=== PATIENT | male | born 1940 | race Caucasian/White ===

== ENCOUNTER 2017-03-16 14:09 | Observation (INO) | payer MEDICARE ==
[~2017-03-16] VITALS: Ht 177.8 cm; Wt 83.9 kg
[2017-03-16] MEDS ORDERED: ASPIRIN 325MG EC TAB 325 MG TABLET.DR PO ONE (14:14)
[2017-03-16 14:36] LABS: BASOPHILS % (AUTO) 0.6 % (0.0-5.0); EOSINOPHILS % (AUTO) 1.6 % (0.0-8.0); HEMATOCRIT 36.3 % (42-54); LYMPHOCYTES % (AUTO) 41.4 % (21.0-51.0); MEAN CORPUSCULAR HEMOGLOBIN 32.2 pg (27.0-33.0); MEAN CORPUSCULAR HGB CONC 36.1 g/dL (32.0-36.0); MEAN CORPUSCULAR VOLUME 89.2 fL (79-99); MONOCYTES % (AUTO) 6.9 % (3.0-13.0); NEUTROPHILS % (AUTO) 49.5 % (40.0-77.0); PLATELET COUNT (AUTO) 217 K/uL (130-400); RED BLOOD CELL COUNT(AUTO) 4.06 MIL/uL (4.50-6.20); RED CELL DISTRIBUTION WIDTH 12.9 % (11.0-15.5); WHITE BLOOD COUNT (AUTO) 7.8 K/uL (4.8-10.8)
[2017-03-16 14:54] LABS: INR 1.06 (0.85-1.15); PARTIAL THROMBOPLASTIN TIME 24.9 SEC (26.3-35.5); PROTHROMBIN TIME 11.1 SEC (9.6-11.6)
[2017-03-16 15:07] LABS: ALBUMIN 3.5 g/dL (3.5-5.0); BILIRUBIN,TOTAL 0.4 mg/dL (0.2-1.0); CREATINE KINASE MB 2.3 ng/mL (0.5-3.6); CREATININE 0.8 mg/dL (0.5-1.5); TOTAL PROTEIN, SERUM 6.4 g/dL (6.0-8.3)
[2017-03-16 15:08] LABS: POTASSIUM 2.7 mmol/L (3.5-5.1)
[2017-03-16] MEDS ORDERED: POTASSIUM BICARB/CIT AC 25 MEQ TABLET.EFF ONE ×2 (15:12→16:03)
[2017-03-16] MEDS ORDERED: METOPROLOL TARTRATE 1 MG/ML 5ML VIAL IV ONE (21:29)
[2017-03-16 22:23] VITALS: BP 149/68
[2017-03-16 22:59] LABS: CREATINE KINASE MB 1.3 ng/mL (0.5-3.6); TROPONIN I 0.06 ng/mL (0.00-0.06)
[2017-03-17] MEDS ORDERED: LIDOCAINE HCL-MPF 1% 2ML VIAL IJ PRN (03:45)
[2017-03-17] MEDS ORDERED: ACETAMINOPHEN 325 MG TAB PO PRN ×2 (03:45)
[2017-03-17] MEDS ORDERED: LACTULOSE 20 GM/30 ML UDCUP PO PRN (03:45)
[2017-03-17] MEDS ORDERED: IPRATROPIUM/ALBUTEROL SULFATE 3 ML SOLUTION IH PRN (03:45)
[2017-03-17] MEDS ORDERED: NITROGLYCERIN 0.4 MG SL TAB SL PRN (03:45)
[2017-03-17] MEDS ORDERED: POTASSIUM CHLORIDE 10% ELIXIR 20 MEQ/15 ML UDCUP PO PRN (03:45)
[2017-03-17] MEDS ORDERED: POTASSIUM CHLORIDE 20MEQ/100ML 100 ML IV PRN (03:45)
[2017-03-17] MEDS ORDERED: CLONIDINE HCL 0.1 MG TABLET PO PRN (03:45)
[2017-03-17 04:00] VITALS: BP 118/62
[2017-03-17 05:35] LABS: HEMATOCRIT 36.9 % (42-54); MEAN CORPUSCULAR HEMOGLOBIN 31.6 pg (27.0-33.0); MEAN CORPUSCULAR HGB CONC 35.3 g/dL (32.0-36.0); MEAN CORPUSCULAR VOLUME 89.5 fL (79-99); PLATELET COUNT (AUTO) 195 K/uL (130-400); RED BLOOD CELL COUNT(AUTO) 4.12 MIL/uL (4.50-6.20); RED CELL DISTRIBUTION WIDTH 12.8 % (11.0-15.5); WHITE BLOOD COUNT (AUTO) 6.1 K/uL (4.8-10.8)
[2017-03-17 05:53] LABS: BAND NEUTROPHILS % (MANUAL) 2 % (0-2); EOSINOPHILS % (MANUAL) 1 % (1-6); LYMPHOCYTES % (MANUAL) 31 % (22-44); MAN.DIFF COMMENT-IMPRESSION MANUAL DIFFERENTIAL; MONOCYTES % (MANUAL) 7 % (2-9); PLATELET MORPHOLOGY COMMENT ADEQUATE; SEGMENTED NEUTROPHILS % 59 % (40-70)
[2017-03-17 06:09] LABS: CREATINE KINASE MB 1.1 ng/mL (0.5-3.6); CREATININE 0.8 mg/dL (0.5-1.5); POTASSIUM 3.4 mmol/L (3.5-5.1); TROPONIN I 0.05 ng/mL (0.00-0.06)
[2017-03-17 07:38] VITALS: BP 120/64
[2017-03-17] MEDS: POTASSIUM CHLORIDE 20 MEQ ERTAB PO PRN ×2 (08:27→10:30)
[2017-03-17] MEDS ORDERED: ASPIRIN 325 MG TABLET PO SCH (09:00)
[2017-03-17] MEDS ORDERED: FAMOTIDINE 20MG TAB 20 MG TAB PO SCH (09:00)
[2017-03-17] MEDS ORDERED: METOPROLOL TARTRATE 1 MG/ML 5ML VIAL IV SCH (09:00)
[2017-03-17] MEDS ORDERED: PANT40TA25 PO (09:28)
[2017-03-17] MEDS ORDERED: ASPI81TA40 PO (09:28)
[2017-03-17] MEDS ORDERED: XALA2.5OS OU (09:28)
[2017-03-17] MEDS ORDERED: METO-408 PO (09:28)
[2017-03-17] MEDS ORDERED: FINA5TAB41 PO (09:28)
[2017-03-17] MEDS ORDERED: LOSA1TAB54 PO (09:28)
[2017-03-17] MEDS ORDERED: ATOR40TA69 PO (09:28)
[2017-03-17] MEDS ORDERED: CLOP75TA32 PO (09:28)
[2017-03-17] MEDS ORDERED: AMOX500C2 PO (09:28)
[2017-03-17] MEDS ORDERED: METR500T4 PO (09:28)
[2017-03-17] MEDS ORDERED: AMLO2.5T PO (09:28)
[2017-03-17] MEDS ORDERED: AMOXICILLIN 500 MG CAPSULE PO SCH (14:00)
[2017-03-17] MEDS ORDERED: AMLODIPINE BESYLATE 2.5 MG TAB PO SCH (17:00)
[2017-03-17] MEDS ORDERED: NON-FORMULARY MEDICATION 1 EACH (Metoprolol Succinate 25 MG) PO SCH (17:00)
[2017-03-17] MEDS ORDERED: METRONIDAZOLE 500 MG TABLET PO SCH (21:00)
[2017-03-17] MEDS ORDERED: PANTOPRAZOLE SODIUM 40 MG TABLET.DR PO SCH (21:00)
[2017-03-17] MEDS ORDERED: LATANOPROST 2.5 ML DROPS OU SCH (21:00)
[2017-03-18] MEDS ORDERED: FINASTERIDE 5 MG TABLET PO SCH (09:00)
[2017-03-18] MEDS ORDERED: NON-FORMULARY MEDICATION 1 EACH (Losartan/Hydrochlorothiazide (Losartan-Hctz 100-25 mg Tab PO SCH (09:00)
[2017-03-18] MEDS ORDERED: ASPIRIN 81 MG EC TAB PO SCH (09:00)
[2017-03-18] MEDS ORDERED: CLOPIDOGREL BISULFATE 75 MG TAB PO SCH (09:00)
[2017-03-18] MEDS ORDERED: ATORVASTATIN CALCIUM 40 MG TABLET PO SCH (09:00)
== END 2017-03-17 10:57 | disposition home or self-care (01) ==
LOC: EDH 14:09 → EDHIP 19:40 → 2AH 22:03
PROVIDERS: ADMIT Family Medicine; ATTEND Family Medicine
DX: I25.119 Atherosclerotic heart disease of native coronary artery with unspecified angina pectoris (principal); E87.6 Hypokalemia; E78.5 Hyperlipidemia, unspecified; I10 Essential (primary) hypertension; N40.0 Benign prostatic hyperplasia without lower urinary tract symptoms; K21.9 Gastro-esophageal reflux disease without esophagitis; Z95.1 Presence of aortocoronary bypass graft; Z95.5 Presence of coronary angioplasty implant and graft; Z88.1 Allergy status to other antibiotic agents; Z79.899 Other long term (current) drug therapy
CPT/HCPCS: 36415 ×2; 71045; 80048; 80053; 80061; 82550 ×3; 82553 ×3; 83874 ×3; 83880; 84132; 84484 ×4; 85025 ×2; 85610; 85730; 93005 ×4; 94664; 99285; G0378 ×15; J3490

== ENCOUNTER → 2017-11-27 | Outpatient (CLI) | payer MEDICARE ==
[~2017-11-27] MED LIST: AMLO2.5T3 PO; AMOX500C2 PO; ASPI81TA40 PO; ATOR40TA69 PO; CLOP75TA32 PO; FINA5TAB41 PO; LOSA1TAB54 PO; METO-408 PO; METR500T4 PO; PANT40TA25 PO; XALA2.5OS OU
== END | disposition home or self-care (01) ==
LOC: SHCH 12:50
PROVIDERS: ATTEND Internal Medicine Cardiovascular Disease
DX: I65.23 Occlusion and stenosis of bilateral carotid arteries (principal); R09.89 Other specified symptoms and signs involving the circulatory and respiratory systems
CPT/HCPCS: 93880

== ENCOUNTER 2018-03-12 07:40 | Day surgery (SDC) | payer MEDICARE ==
[2018-03-12] VITALS (7 sets, daily range): BP systolic 107–120; BP diastolic 49–66
[~2018-03-12] VITALS: Ht 177.8 cm; Wt 82.0 kg
[~2018-03-12 07:40] MED LIST changes: -AMLO2.5T3 PO; +AMLO2.5T4 PO; -AMOX500C2 PO; -METO-408 PO; -METR500T4 PO; -PANT40TA25 PO; +SODIUM CHLORIDE 0.9% 1000ML 1,000 ML IV ONE
--- NOTE | 2018-03-12 09:15 | NUR ---
NURSING REGARDING PT DRINKING 8OZ H2O THIS AM AT 0700 ANESTHESIA NOTIFIED (BETH) Addendum: 03/12/18 at 0917 by BETSEY SHAH RN Amended: Links added.
[2018-04-17] MEDS ORDERED: FLUT16H NS (13:32)
[2018-04-17] MEDS ORDERED: PANT40TA25 PO (13:32)
[2018-04-17] MEDS ORDERED: SUCR1TAB2 PO (13:32)
== END 2018-03-12 11:20 | disposition home or self-care (01) ==
LOC: ENDO 07:40 → DAH 07:40 → ENDO 11:20
PROVIDERS: ATTEND Internal Medicine
DX: K29.50 Unspecified chronic gastritis without bleeding (principal); K21.0 Gastro-esophageal reflux disease with esophagitis; K31.89 Other diseases of stomach and duodenum; E78.5 Hyperlipidemia, unspecified; I10 Essential (primary) hypertension; M19.90 Unspecified osteoarthritis, unspecified site; I25.10 Atherosclerotic heart disease of native coronary artery without angina pectoris; B96.81 Helicobacter pylori [H. pylori] as the cause of diseases classified elsewhere; K44.9 Diaphragmatic hernia without obstruction or gangrene; Z79.899 Other long term (current) drug therapy; Z98.890 Other specified postprocedural states; Z80.0 Family history of malignant neoplasm of digestive organs; Z86.010 Personal history of colon polyps
CPT/HCPCS: 43239; 88305; 88342; 93005; A4606; J7030

== ENCOUNTER 2018-04-18 07:09 | Day surgery (SDC) | payer MEDICARE ==
[2018-04-16 16:06] VITALS: BP 154/62
--- NOTE | 2018-04-16 16:06 | NUR ---
EKG DR CORRIGAN REVIEWED EKG FROM 04/16/18, OK TO PROCEED WITH SURGERY PLANNED
[2018-04-16 16:11] LABS: BASOPHILS % (AUTO) 0.3 % (0.0-5.0); EOSINOPHILS % (AUTO) 2.4 % (0.0-8.0); MEAN CORPUSCULAR HEMOGLOBIN 31.6 pg (27.0-33.0); MEAN CORPUSCULAR HGB CONC 34.6 g/dL (32.0-36.0); MEAN CORPUSCULAR VOLUME 91.3 fL (79-99); MONOCYTES % (AUTO) 7.5 % (3.0-13.0); NEUTROPHILS % (AUTO) 54.8 % (40.0-77.0); NUCLEATED RED BLOOD CELLS 0.1 % (0.0-0.19); PLATELET COUNT (AUTO) 185 K/uL (130-400); RED BLOOD CELL COUNT(AUTO) 4.71 MIL/uL (4.50-6.20); RED CELL DISTRIBUTION WIDTH 12.9 % (11.0-15.5); WHITE BLOOD COUNT (AUTO) 5.9 K/uL (4.8-10.8)
[2018-04-16 16:17] LABS: CREATININE 0.7 mg/dL (0.5-1.5); POTASSIUM 3.7 mmol/L (3.5-5.1)
[2018-04-18] VITALS (12 sets, daily range): BP systolic 102–128; BP diastolic 55–67
[~2018-04-18] VITALS: Ht 177.8 cm; Wt 82.6 kg
[2018-04-18] MEDS: CEFTRIAXONE SODIUM 1 GM IVP SCH ×2 (06:00→08:35)
[~2018-04-18 07:09] MED LIST changes: +FLUT16H NS; +PANT40TA25 PO; -SODIUM CHLORIDE 0.9% 1000ML 1,000 ML IV ONE; +SUCR1TAB2 PO
[2018-04-18] MEDS ORDERED: LIDOCAINE HCL 1% 20 ML VIAL ONE (07:37)
[2018-04-18] MEDS ORDERED: BUPIVACAINE/PF 0.25% 30ML VIAL IJ ONE (07:37)
[2018-04-18] MEDS ORDERED: BACITRACIN 28.4 GM OINT TP ONE (07:39)
[2018-04-18] MEDS ORDERED: LACTATED RINGERS 1000ML 1,000 ML IV ONE (08:03)
[2018-04-18] MEDS ORDERED: MIDAZOLAM HCL 1 MG/ML 2ML VIAL ONE (08:18)
[2018-04-18] MEDS ORDERED: PROPOFOL 10 MG/ML 20ML VIAL IV ONE (08:18)
[2018-04-18] MEDS ORDERED: LIDOCAINE PF 2% 5ML ABBOJECT ONE (08:18)
[2018-04-18] MEDS ORDERED: FENTANYL CITRATE PF 50 MCG/1 ML 2ML VIAL ONE ×2 (08:19→08:48)
[2018-04-18] MEDS ORDERED: PHENYLEPHRINE HCL 10 MG/ML 1ML VIAL IV ONE (08:55)
[2018-04-18] MEDS ORDERED: EPHEDRINE SULFATE 50 MG/ML AMPULE ONE (09:04)
== END 2018-04-18 10:54 | disposition home or self-care (01) ==
LOC: DAH 07:09
PROVIDERS: ATTEND Urology
DX: N47.1 Phimosis (principal); D18.09 Hemangioma of other sites; I25.10 Atherosclerotic heart disease of native coronary artery without angina pectoris; I10 Essential (primary) hypertension; Z95.1 Presence of aortocoronary bypass graft; Z95.5 Presence of coronary angioplasty implant and graft; Z79.899 Other long term (current) drug therapy; Z88.8 Allergy status to other drugs, medicaments and biological substances; K21.9 Gastro-esophageal reflux disease without esophagitis
CPT/HCPCS: 17107; 36415; 54161; 80048; 85025; 88304; 93005; A4218; A4351; A4510; A4600; A4930; J0696; J2001; J2250; J2370; J2704; J3010 ×2; J3490 ×2; J7120

== ENCOUNTER → 2018-08-05 | Outpatient (CLI) | payer MEDICARE ==
[~2018-08-05] VITALS: Ht 177.8 cm; Wt 79.4 kg
[~2018-08-05] MED LIST changes: +AEC81 PO; -ASPI81TA40 PO; +ATOR10 PO; +BRIM155OS OD; +FLUT16H NASAL; +LATA7.5D OP; +METO25TA3 PO; +REGADENOSON 0.4 MG/5 ML PF SYG IVP SCH
== END | disposition home or self-care (01) ==
LOC: SHCH 08:55
PROVIDERS: ATTEND Internal Medicine Cardiovascular Disease
DX: I25.89 Other forms of chronic ischemic heart disease (principal); R07.9 Chest pain, unspecified; I20.9 Angina pectoris, unspecified
CPT/HCPCS: 78452; 93017; 96374; A9500 ×2; J2785

== ENCOUNTER 2018-08-12 03:49 | Observation (INO) | payer MEDICARE ==
[~2018-08-12] VITALS: Ht 177.8 cm; Wt 78.1 kg
[~2018-08-12 03:49] MED LIST changes: -AEC81 PO; -ATOR10 PO; -BRIM155OS OD; -FLUT16H NASAL; -LATA7.5D OP; -METO25TA3 PO; -REGADENOSON 0.4 MG/5 ML PF SYG IVP SCH
[2018-08-12] MEDS ORDERED: ASPIRIN 325 MG TABLET ONE ×2 (04:11→09:19)
[2018-08-12] MEDS ORDERED: NITROGLYCERIN 1GM/1 INCH PACKET TD ONE (04:11)
[2018-08-12 04:25] LABS: BASOPHILS % (AUTO) 0.6 % (0.0-5.0); EOSINOPHILS % (AUTO) 2.3 % (0.0-8.0); HEMATOCRIT 39.4 % (42-54); LYMPHOCYTES % (AUTO) 27.9 % (21.0-51.0); MEAN CORPUSCULAR HEMOGLOBIN 32.3 pg (27.0-33.0); MEAN CORPUSCULAR HGB CONC 35.6 g/dL (32.0-36.0); MEAN CORPUSCULAR VOLUME 90.8 fL (79-99); NEUTROPHILS % (AUTO) 61.2 % (40.0-77.0); NUCLEATED RED BLOOD CELLS 0.2 % (0.0-0.19); PLATELET COUNT (AUTO) 209 K/uL (130-400); RED BLOOD CELL COUNT(AUTO) 4.34 MIL/uL (4.50-6.20); RED CELL DISTRIBUTION WIDTH 12.3 % (11.0-15.5); WHITE BLOOD COUNT (AUTO) 8.4 K/uL (4.8-10.8)
[2018-08-12 04:29] LABS: INR 1.02 (0.85-1.15); PARTIAL THROMBOPLASTIN TIME 27.3 SEC (26.3-35.5); PROTHROMBIN TIME 10.7 SEC (9.6-11.6)
[2018-08-12 04:33] LABS: ALBUMIN 3.4 g/dL (3.5-5.0); BILIRUBIN,TOTAL 0.5 mg/dL (0.2-1.0); CREATININE 0.8 mg/dL (0.5-1.5); TOTAL PROTEIN, SERUM 6.7 g/dL (6.0-8.3)
[2018-08-12 04:35] LABS: POTASSIUM 2.9 mmol/L (3.5-5.1)
[2018-08-12 04:59] LABS: B-TYPE NATRIURETIC PEPTIDE 136 pg/mL (0-100)
[2018-08-12] MEDS ORDERED: MAGNESIUM 2GM PREMIX 50ML 50 ML IV PRN (05:00)
[2018-08-12] MEDS ORDERED: POTASSIUM CHLORIDE 20 MEQ ERTAB PO PRN (05:00)
[2018-08-12] MEDS ORDERED: POTASSIUM CHLORIDE 10% ELIXIR 20 MEQ/15 ML UDCUP PO PRN (05:00)
[2018-08-12] MEDS ORDERED: POTASSIUM CHLORIDE 20MEQ/100ML 100 ML IV PRN (05:00)
[2018-08-12] MEDS ORDERED: LIDOCAINE HCL-MPF 1% 2ML VIAL IVP PRN (05:00)
[2018-08-12 05:11] LABS: APPEARANCE,URINE Clear (CLEAR); BILIRUBIN,URINE Negative (NEGATIVE); COLOR,URINE Yellow (YELLOW); GLUCOSE, URINE (UA) Negative (NEGATIVE); KETONES,URINE Negative (NEGATIVE); LEUKOCYTE ESTERASE ,URINE Negative (NEGATIVE); NITRATE,URINE Negative (NEGATIVE); OCCULT BLOOD,URINE Trace (NEGATIVE); PROTEIN,URINE Negative (NEGATIVE); UROBILINOGEN,URINE 0.2 mg/dL (0.2-1.0)
[2018-08-12] MEDS ORDERED: NITROGLYCERIN 0.4 MG SL TAB SL PRN (05:15)
[2018-08-12] MEDS ORDERED: ACETAMINOPHEN 325 MG TAB PO PRN ×2 (05:15)
[2018-08-12] MEDS ORDERED: ONDANSETRON HCL 4 MG/2 ML VIAL IV PRN (05:15)
[2018-08-12 05:17] LABS: AMPHET/METH SCREEN,URINE NEGATIVE (NEGATIVE); BARBITURATE SCREEN, URINE NEGATIVE (NEGATIVE); BENZODIAZEPINES SCREEN,URINE NEGATIVE (NEGATIVE); CANNABINOID SCREEN,URINE NEGATIVE (NEGATIVE); COCAINE SCREEN,URINE NEGATIVE (NEGATIVE); OPIATE SCREEN,URINE NEGATIVE (NEGATIVE); PHENCYCLIDINE SCREEN,URINE NEGATIVE (NEGATIVE)
[2018-08-12 05:32] LABS: BACTERIA,URINE Rare /HPF (None Seen); RBC,URINE 0-1 /HPF (0-1); SQUAMOUS EPITHELIAL CELL,UR None Seen /HPF (0-2); WBC,URINE None Seen /HPF (0-1)
[2018-08-12] MEDS ORDERED: POTASSIUM CHLORIDE 20 MEQ ERTAB PO ONE ×4 (06:10→11:43)
[2018-08-12] MEDS ORDERED: MAGNESIUM 2GM PREMIX 50ML 50 ML IV ONE (06:11)
[2018-08-12] MEDS ORDERED: POTASSIUM CHLORIDE 20MEQ/100ML 100 ML IV ONE (08:01)
[2018-08-12] MEDS ORDERED: ENOXAPARIN SODIUM 30 MG/0.3 ML SQ SCH (09:00)
[2018-08-12] MEDS ORDERED: METOPROLOL TARTRATE 25 MG TAB PO SCH (09:00)
[2018-08-12] MEDS ORDERED: FAMOTIDINE 20MG TAB 20 MG TAB PO SCH (09:00)
[2018-08-12] MEDS ORDERED: ENOXAPARIN SODIUM 30 MG/0.3 ML SQ ONE (09:19)
[2018-08-12] MEDS ORDERED: FAMOTIDINE 20MG TAB 20 MG TAB ONE (09:19)
[2018-08-12] MEDS ORDERED: METOPROLOL TARTRATE 25 MG TAB ONE (09:19)
[2018-08-12 12:15] VITALS: BP 146/74
[2018-08-12 12:58] LABS: POTASSIUM 3.8 mmol/L (3.5-5.1); TROPONIN I 0.04 ng/mL (0.00-0.06)
[2018-08-12] MEDS ORDERED: LATA7.5D OP (15:18)
[2018-08-12] MEDS ORDERED: FLUT16H NASAL (15:18)
[2018-08-12] MEDS ORDERED: ATOR10 PO (15:18)
[2018-08-12] MEDS ORDERED: CLOP75TA32 PO (15:18)
[2018-08-12] MEDS ORDERED: LOSA1TAB54 PO (15:18)
[2018-08-12] MEDS ORDERED: BRIM155OS OD (15:18)
[2018-08-12] MEDS ORDERED: FINA5TAB41 PO (15:18)
[2018-08-12] MEDS ORDERED: AEC81 PO (15:18)
[2018-08-12] MEDS ORDERED: AMLO2.5T4 PO (15:18)
[2018-08-12 16:00] VITALS: BP 151/70
--- NOTE | 2018-08-12 16:10 | NUR ---
INITIAL MET W PATIENT, AAOX3, NO DISTTRESS, HERE FOR CHEST PAIN WORKUP, STATES INDP OF ADLS, USES NO MOBILITY AIDS, DRIVES, LIVES W SPOUSE [facility] WHO WILL PROVIDE TRANSPORT HOME. STATES HAS BEEN GETTING CHEST PAIN AND TIREDNESS WHEN CUTTING GREASS. CM WILL FOLLOW TO RECOMMENDATIONS. DCP HOME .
[2018-08-12 19:05] VITALS: BP 122/66
[2018-08-12 20:24] LABS: MAGNESIUM 1.9 mg/dL (1.80-2.40); TROPONIN I 0.05 ng/mL (0.00-0.06)
[2018-08-13] MEDS ORDERED: METO25TA3 PO (00:15)
[2018-08-13 00:20] VITALS: BP 124/70
[2018-08-13] MEDS ORDERED: SIMETHICONE 80 MG TAB.CHEW ONE (03:09)
[2018-08-13] MEDS ORDERED: SIMETHICONE 80 MG TAB.CHEW PO ONE (03:15)
[2018-08-13 04:00] VITALS: BP 144/79
[2018-08-13 05:45] LABS: BASOPHILS % (AUTO) 0.4 % (0.0-5.0); HEMATOCRIT 38.4 % (42-54); LYMPHOCYTES % (AUTO) 27.9 % (21.0-51.0); MEAN CORPUSCULAR HEMOGLOBIN 31.8 pg (27.0-33.0); MEAN CORPUSCULAR HGB CONC 35.1 g/dL (32.0-36.0); MEAN CORPUSCULAR VOLUME 90.5 fL (79-99); MONOCYTES % (AUTO) 7.6 % (3.0-13.0); NEUTROPHILS % (AUTO) 62.1 % (40.0-77.0); PLATELET COUNT (AUTO) 209 K/uL (130-400); RED BLOOD CELL COUNT(AUTO) 4.25 MIL/uL (4.50-6.20); RED CELL DISTRIBUTION WIDTH 12.6 % (11.0-15.5); WHITE BLOOD COUNT (AUTO) 7.2 K/uL (4.8-10.8)
[2018-08-13 06:04] LABS: ALBUMIN 3.2 g/dL (3.5-5.0); BILIRUBIN,TOTAL 0.5 mg/dL (0.2-1.0); CREATININE 0.7 mg/dL (0.5-1.5); MAGNESIUM 2.4 mg/dL (1.80-2.40); POTASSIUM 3.8 mmol/L (3.5-5.1); TOTAL PROTEIN, SERUM 6.5 g/dL (6.0-8.3)
--- NOTE | 2018-08-13 08:00 | NUR ---
MEDICATIONS Patient stated he would like to take his own home medications when he gets home. No medications were given before discharge.
--- NOTE | 2018-08-13 08:41 | NUR ---
DISCHARGE Instructions given. 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 Follow up appointments for Dr. Jm Oden for tomorrow and pt already has an appointment with Dr. Jm Webber that was made before this admission in 6 weeks and patient plans to follow up. Prescription given for metoprolol succinate and losartan as ordered.
[2018-08-13] MEDS ORDERED: ASPIRIN 325 MG TABLET PO SCH (09:00)
== END 2018-08-13 08:35 | disposition home or self-care (01) ==
LOC: EDH 03:49 → EDHIP 04:57 → 3CH 12:03
PROVIDERS: ADMIT Internal Medicine; ATTEND Internal Medicine
DX: R07.89 Other chest pain (principal); E78.5 Hyperlipidemia, unspecified; E83.42 Hypomagnesemia; I10 Essential (primary) hypertension; I25.10 Atherosclerotic heart disease of native coronary artery without angina pectoris; K21.9 Gastro-esophageal reflux disease without esophagitis; N40.0 Benign prostatic hyperplasia without lower urinary tract symptoms; E87.6 Hypokalemia; F10.10 Alcohol abuse, uncomplicated; Z79.02 Long term (current) use of antithrombotics/antiplatelets; Z79.82 Long term (current) use of aspirin; Z79.899 Other long term (current) drug therapy; Z80.0 Family history of malignant neoplasm of digestive organs; Z95.1 Presence of aortocoronary bypass graft; Z95.5 Presence of coronary angioplasty implant and graft
CPT/HCPCS: 36415 ×2; 71045; 80053 ×2; 80061; 80305; 81001; 82550 ×3; 83690; 83735 ×3; 83874 ×2; 83880; 84132 ×2; 84484 ×3; 85025 ×2; 85610; 85730; 87486; 87581; 87633; 87798; 93005 ×3; 96365; 99284; G0378 ×27; J1650; J3475 ×2; J3480

== ENCOUNTER → 2018-12-02 | Outpatient (CLI) | payer MEDICARE ==
[~2018-12-02] MED LIST changes: -LOSA1TAB54 PO; +METO25TA3 PO
== END | disposition home or self-care (01) ==
LOC: SHCH 13:23
PROVIDERS: ATTEND Internal Medicine Cardiovascular Disease
DX: I65.23 Occlusion and stenosis of bilateral carotid arteries (principal)
CPT/HCPCS: 93880

== ENCOUNTER → 2019-03-05 | Outpatient (CLI) | payer MEDICARE | END | disposition home or self-care (01) | LOC: RAH 12:29 | PROVIDERS: ATTEND Internal Medicine Gastroenterology | DX: R60.9 Edema, unspecified (principal) | CPT/HCPCS: 93970 ==

== ENCOUNTER → 2019-03-19 | Outpatient (CLI) | payer MEDICARE | END | disposition home or self-care (01) | LOC: SHCH 09:13 | PROVIDERS: ATTEND Internal Medicine Cardiovascular Disease | DX: I35.1 Nonrheumatic aortic (valve) insufficiency (principal) | CPT/HCPCS: 93306; 93356 ==

== ENCOUNTER → 2019-05-13 | Outpatient (CLI) | payer MEDICARE | END | disposition home or self-care (01) | LOC: SHCH 13:46 | PROVIDERS: ATTEND Internal Medicine Cardiovascular Disease | DX: I87.2 Venous insufficiency (chronic) (peripheral) (principal) | CPT/HCPCS: 93970 ==

== ENCOUNTER → 2019-11-06 | Outpatient (CLI) | payer MEDICARE ==
[~2019-11-06] MED LIST changes: -PANT40TA25 PO; +PANT40TA54 PO
== END | disposition home or self-care (01) ==
LOC: SHCH 09:43
PROVIDERS: ATTEND Internal Medicine Cardiovascular Disease
DX: R06.09 Other forms of dyspnea (principal)
CPT/HCPCS: 93306; 93356

== ENCOUNTER → 2019-12-08 | Outpatient (CLI) | payer MEDICARE ==
[~2019-12-08] MED LIST changes: +REGADENOSON 0.4 MG/5 ML PF SYG IVP SCH
== END | disposition home or self-care (01) ==
LOC: SHCH 07:46
PROVIDERS: ATTEND Internal Medicine Cardiovascular Disease
DX: R07.9 Chest pain, unspecified (principal); R06.09 Other forms of dyspnea
CPT/HCPCS: 78452; 93017; 96374; A9500 ×2; J2785

== ENCOUNTER 2019-12-21 08:39 | Observation (INO) | payer MEDICARE ==
[2019-12-18 12:47] LABS: BASOPHILS % (AUTO) 0.3 % (0.0-5.0); EOSINOPHILS % (AUTO) 2.7 % (0.0-8.0); HEMATOCRIT 39.7 % (42-54); LYMPHOCYTES % (AUTO) 29.9 % (21.0-51.0); MEAN CORPUSCULAR HEMOGLOBIN 30.9 pg (27.0-33.0); MEAN CORPUSCULAR HGB CONC 33.2 g/dL (32.0-36.0); MONOCYTES % (AUTO) 7.5 % (3.0-13.0); NEUTROPHILS % (AUTO) 59.3 % (40.0-77.0); PLATELET COUNT (AUTO) 144 K/uL (130-400); RED BLOOD CELL COUNT(AUTO) 4.27 MIL/uL (4.50-6.20); RED CELL DISTRIBUTION WIDTH 12.9 % (11.0-15.5); WHITE BLOOD COUNT (AUTO) 6.2 K/uL (4.8-10.8)
[2019-12-18 13:04] LABS: CREATININE 0.8 mg/dL (0.5-1.5); POTASSIUM 4.1 mmol/L (3.5-5.1)
[2019-12-18 13:06] LABS: PARTIAL THROMBOPLASTIN TIME 26.1 SEC (26.3-35.5)
[2019-12-18 13:16] LABS: INR 1.12 (0.85-1.15)
[2019-12-18 13:37] LABS: APPEARANCE,URINE Clear (CLEAR); BILIRUBIN,URINE Negative (NEGATIVE); COLOR,URINE Yellow (YELLOW); GLUCOSE, URINE (UA) Negative (NEGATIVE); KETONES,URINE Negative (NEGATIVE); LEUKOCYTE ESTERASE ,URINE Negative (NEGATIVE); NITRATE,URINE Negative (NEGATIVE); OCCULT BLOOD,URINE Trace (NEGATIVE); PROTEIN,URINE Negative (NEGATIVE); UROBILINOGEN,URINE 0.2 mg/dL (0.2-1.0)
[2019-12-18 14:10] LABS: BACTERIA,URINE Rare /HPF (None Seen); RBC,URINE 0-1 /HPF (0-1); SQUAMOUS EPITHELIAL CELL,UR None Seen /HPF (0-2); WBC,URINE None Seen /HPF (0-1)
[2019-12-21] VITALS (11 sets, daily range): BP systolic 96–139; BP diastolic 67–72
[~2019-12-21] VITALS: Ht 177.8 cm; Wt 79.4 kg
[~2019-12-21 08:39] MED LIST changes: +ASPI-1443 PO; +BRIM10DR16 OP; +FEXO1TAB8 PO; +FURO20TA4 PO; +ISOS30TA6 PO; -PANT40TA54 PO; +POTA-9 PO; -REGADENOSON 0.4 MG/5 ML PF SYG IVP SCH; +SODIUM CHLORIDE 0.9% 1000ML 1,000 ML IV SCH; -SUCR1TAB2 PO
--- NOTE | 2019-12-21 09:50 | NUR ---
DAY PT ARRIVAL PT ARRIVED WITH TO DAY PT . PREP STARTED AT THIS TIME. NOTED IN NO APPARENT DISTRESS AT THIS TIME.
[2019-12-21] MEDS ORDERED: MIDAZOLAM HCL 1 MG/ML 2ML VIAL ONE ×2 (11:02→12:21)
[2019-12-21] MEDS ORDERED: IOHEXOL-350 50ML VIAL IV ONE (11:02)
[2019-12-21] MEDS ORDERED: BIVALIRUDIN 250 MG/VIAL IV ONE (11:02)
[2019-12-21] MEDS ORDERED: NITROGLYCERIN 2 MG/VIAL VIAL IV ONE (11:02)
[2019-12-21] MEDS ORDERED: IOHEXOL 350 MG/ML 100ML INFUS..BTL IV ONE (11:02)
[2019-12-21] MEDS ORDERED: LIDOCAINE HCL 2% 20ML ONE (11:03)
[2019-12-21] MEDS ORDERED: FENTANYL CITRATE PF 50 MCG/1 ML 2ML VIAL ONE (11:03)
[2019-12-21] MEDS ORDERED: GLUCAGON 1MG KIT 1 MG ML IM PRN (13:00)
[2019-12-21] MEDS ORDERED: METOPROLOL TARTRATE 1 MG/ML 5ML VIAL IV PRN (13:00)
[2019-12-21] MEDS ORDERED: DEXTROSE 50%-WATER 50 ML DISP.SYRIN IV PRN (13:00)
[2019-12-21] MEDS ORDERED: SODIUM CHLORIDE 0.9% 1000ML 1,000 ML IV SCH (13:00)
[2019-12-21] MEDS ORDERED: NITROGLYCERIN 0.4 MG SL TAB SL PRN (13:00)
[2019-12-21] MEDS ORDERED: HYDRALAZINE HCL 20 MG/ML VIAL IV PRN (13:00)
[2019-12-21] MEDS ORDERED: CLOPIDOGREL BISULFATE 300 MG TAB ONE (13:07)
--- NOTE | 2019-12-21 13:20 | NUR ---
PT TRANSPORTED TO ROOM 406, BEDSIDE GROIN CHECK BY RECEIVING NURSE ANABEL. LLANOS AT BEDSIDE. Addendum: 12/21/19 at 1545 by OPHELIA ARIAS RN RN TIME OF TRANSFER [id number]
--- NOTE | 2019-12-21 13:25 | NUR ---
ARRIVAL FROM [facility] PT ALERT AND ORIENTED FROM TRAVELING ENGINEER GROIN IS NOTED CLEAD AND DRY WITH NO SIGNS OF HEMATOMA OR HARDNESS TO RIGHT GROIN.
[2019-12-21] MEDS ORDERED: NON-FORMULARY MEDICATION 1 EACH (Fexofenadine/Pseudoephedrine (Allegra-D 24 Hour Tablet) 1 PO PRN (16:15)
[2019-12-21] MEDS ORDERED: FLUTICASONE PROPIONATE 50MCG/SPRAY 16 GM BOTTLE NS PRN (16:15)
[2019-12-21] MEDS ORDERED: LOSA100T58 PO (16:16)
[2019-12-21] MEDS ORDERED: PSEUDOEPHEDRINE PO PRN (17:00)
[2019-12-21] MEDS ORDERED: AMLODIPINE BESYLATE 2.5 MG TAB PO SCH (17:00)
[2019-12-21] MEDS ORDERED: FEXOFENADINE PO PRN (17:00)
[2019-12-21] MEDS: DORZOLAMIDE OP SCH (20:16)
[2019-12-21] MEDS: BRIMONIDINE OP SCH (20:16)
[2019-12-21] MEDS ORDERED: [UNRECOGNIZED DRUG - OTHER] OP SCH (21:00)
[2019-12-21] MEDS ORDERED: BRIMONIDINE OP SCH (21:00)
[2019-12-21] MEDS ORDERED: LATANOPROST 2.5 ML DROPS OU SCH (21:00)
[2019-12-21] MEDS ORDERED: DORZOLAMIDE OP SCH (21:00)
[2019-12-22 03:38] VITALS: BP 122/71
[2019-12-22 07:30] VITALS: BP 128/75
[2019-12-22] MEDS ORDERED: NON-FORMULARY MEDICATION 1 EACH (Metoprolol Succinate (Toprol Xl) 25 MG) PO SCH (09:00)
[2019-12-22] MEDS ORDERED: POTASSIUM CHLORIDE 10 MEQ/TAB.SA PO SCH (09:00)
[2019-12-22] MEDS ORDERED: ISOSORBIDE MONO 30MG TAB SR PO SCH (09:00)
[2019-12-22] MEDS: DORZOLAMIDE OP SCH (09:00)
[2019-12-22] MEDS ORDERED: ATORVASTATIN CALCIUM 40 MG TABLET PO SCH (09:00)
[2019-12-22] MEDS ORDERED: ASPIRIN 81 MG EC TAB PO SCH (09:00)
[2019-12-22] MEDS ORDERED: METOPROLOL SUCCINATE 50 MG TAB.SR.24H PO SCH (09:00)
[2019-12-22] MEDS ORDERED: FINASTERIDE 5 MG TABLET PO SCH (09:00)
[2019-12-22] MEDS: BRIMONIDINE OP SCH (09:00)
[2019-12-22] MEDS ORDERED: CLOPIDOGREL BISULFATE 75 MG TAB PO SCH (09:00)
[2019-12-22] MEDS ORDERED: FUROSEMIDE 20 MG TABLET PO SCH (09:00)
[2019-12-22] MEDS ORDERED: LOSARTAN 100 MG TABLET PO SCH (09:00)
--- NOTE | 2019-12-22 10:36 | NUR ---
[id number] patient signed AKERS Letter, I faxed AKERS Letter to [id number] and placed in chart under consent tab.
[2019-12-22 11:00] VITALS: BP 122/69
--- NOTE | 2019-12-22 11:36 | NUR ---
DISCHARGE INSTRUCTIONS GIVEN TO PATIENT AND AT BEDSIDE. MADE AWARE TO STOP ISOSORBIDE. ALL OTHER MEDICATIONS CONTINUE WITH NO CHANGES. RIGHT GROIN SOFT AND NON TENDER, DRESSING DRY AND INTACT. PATIENT DENIES SHORTNESS OF BREATH OR CHEST PAIN. APPOINTMENTS SET UP WITH DR. PECK AND DR. ISLAS. TELE AND IV REMOVED. PATIENT WILL BE TAKEN HOME BY SPOUSE
--- NOTE | 2019-12-22 12:03 | NUR ---
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 NO TRIGGERS TO CM, NO CONCNERNS VOICED BY PATIENT CROWN BLOCKER, WILL DEFERRED DETAILED CM ASSESSMENT AT THIS TIME Addendum: 12/22/19 at 1205 by ABHILASH NEUMANN RN CM Amended: Links added.
== END 2019-12-22 12:05 | disposition home or self-care (01) ==
LOC: DAH 08:39 → DAHIP 08:40 → 4BH 15:30
PROVIDERS: ADMIT Internal Medicine Cardiovascular Disease; ATTEND Internal Medicine Cardiovascular Disease
DX: I25.118 Atherosclerotic heart disease of native coronary artery with other forms of angina pectoris (principal); I11.0 Hypertensive heart disease with heart failure; I50.42 Chronic combined systolic (congestive) and diastolic (congestive) heart failure; E78.2 Mixed hyperlipidemia; I87.2 Venous insufficiency (chronic) (peripheral); I48.0 Paroxysmal atrial fibrillation; T78.40XS Allergy, unspecified, sequela; N40.0 Benign prostatic hyperplasia without lower urinary tract symptoms; Z95.1 Presence of aortocoronary bypass graft; Z95.5 Presence of coronary angioplasty implant and graft; Z79.82 Long term (current) use of aspirin; Z79.899 Other long term (current) drug therapy; Z88.1 Allergy status to other antibiotic agents; X58.XXXA Exposure to other specified factors, initial encounter; Y93.89 Activity, other specified; Y92.89 Other specified places as the place of occurrence of the external cause
CPT/HCPCS: 36415; 71045; 80048; 81001; 85025; 85610; 85730; 93459; A4215; A4216; A4221; A4222; A4223 ×2; A4606; A4663; C1725 ×3; C1760; C1769; C1874 ×2; C1887 ×2; C1894 ×2; C9600; G0378 ×17; J0583; J1644; J2250 ×2; J3010; J3490 ×2; Q9965 ×2; Q9967 ×2; 93005; 99156; 99157

== ENCOUNTER → 2020-03-17 | Outpatient (CLI) | payer MEDICARE ==
[~2020-03-17] MED LIST changes: -ISOS30TA6 PO; +LOSA100T58 PO; -SODIUM CHLORIDE 0.9% 1000ML 1,000 ML IV SCH
== END | disposition home or self-care (01) ==
LOC: SHCH 08:34
PROVIDERS: ATTEND Internal Medicine Cardiovascular Disease
DX: R06.09 Other forms of dyspnea (principal)
CPT/HCPCS: 93306; 93356

== ENCOUNTER 2020-07-18 10:28 | Emergency (ER) | payer OTHER, MEDICARE ==
[~2020-07-18] VITALS: Ht 177.8 cm; Wt 77.1 kg
[2020-07-18 10:49] VITALS: BP 125/77
[2020-07-18 11:25] LABS: BASOPHILS % (AUTO) 0.3 % (0.0-5.0); EOSINOPHILS % (AUTO) 1.9 % (0.0-8.0); HEMATOCRIT 44.1 % (42-54); LYMPHOCYTES % (AUTO) 30.2 % (21.0-51.0); MEAN CORPUSCULAR HEMOGLOBIN 31.4 pg (27.0-33.0); MEAN CORPUSCULAR HGB CONC 33.3 g/dL (32.0-36.0); MEAN CORPUSCULAR VOLUME 94.2 fL (79-99); MONOCYTES % (AUTO) 9.1 % (3.0-13.0); NEUTROPHILS % (AUTO) 58.3 % (40.0-77.0); PLATELET COUNT (AUTO) 147 K/uL (130-400); RED BLOOD CELL COUNT(AUTO) 4.68 MIL/uL (4.50-6.20); RED CELL DISTRIBUTION WIDTH 13.6 % (11.0-15.5); WHITE BLOOD COUNT (AUTO) 5.8 K/uL (4.8-10.8)
[2020-07-18 11:34] LABS: CREATININE 0.8 mg/dL (0.5-1.5)
[2020-07-18 11:39] LABS: APPEARANCE,URINE Clear (CLEAR); BILIRUBIN,URINE Negative (NEGATIVE); COLOR,URINE Yellow (YELLOW); GLUCOSE, URINE (UA) Negative (NEGATIVE); KETONES,URINE Negative (NEGATIVE); LEUKOCYTE ESTERASE ,URINE Negative (NEGATIVE); NITRATE,URINE Negative (NEGATIVE); OCCULT BLOOD,URINE Trace (NEGATIVE); PH,URINE 6.5 (5.0-8.0); PROTEIN,URINE Negative (NEGATIVE); UROBILINOGEN,URINE 0.2 mg/dL (0.2-1.0)
[2020-07-18 11:47] LABS: BACTERIA,URINE Rare /HPF (None Seen); RBC,URINE 0-1 /HPF (0-1); SQUAMOUS EPITHELIAL CELL,UR Rare /HPF (0-2); WBC,URINE 0-1 /HPF (0-1)
[2020-07-18 11:56] LABS: ALBUMIN 3.9 g/dL (3.5-5.0); BILIRUBIN,TOTAL 1.5 mg/dL (0.2-1.0); TOTAL PROTEIN, SERUM 7.2 g/dL (6.0-8.3); TROPONIN I 0.04 ng/mL (0.00-0.06)
[2020-07-18 13:20] VITALS: BP 126/70
[2020-07-18 16:56] VITALS: BP 137/74
== END 2020-07-18 18:38 | disposition home or self-care (01) ==
LOC: EDH 10:28
DX: I50.9 Heart failure, unspecified (principal); Z88.1 Allergy status to other antibiotic agents; Z95.1 Presence of aortocoronary bypass graft; Z79.899 Other long term (current) drug therapy; Z79.82 Long term (current) use of aspirin
CPT/HCPCS: 36415; 71045; 80053; 81001; 82550; 83874; 83880; 84484; 85025; 85378; 93005

== ENCOUNTER → 2020-08-02 | Outpatient (CLI) | payer MEDICARE ==
[~2020-08-02] VITALS: Ht 177.8 cm; Wt 78.9 kg
[~2020-08-02] MED LIST changes: +REGADENOSON 0.4 MG/5 ML PF SYG IVP SCH
== END | disposition home or self-care (01) ==
LOC: SHCH 08:13
PROVIDERS: ATTEND Internal Medicine Cardiovascular Disease
DX: R06.09 Other forms of dyspnea (principal); R07.9 Chest pain, unspecified
CPT/HCPCS: 78452; 93017; 96374; A9500 ×2; J2785

== ENCOUNTER → 2020-09-16 | Outpatient (CLI) | payer MEDICARE ==
[~2020-09-16] MED LIST changes: -REGADENOSON 0.4 MG/5 ML PF SYG IVP SCH
[2020-09-16 14:16] LABS: CREATININE 1.2 mg/dL (0.5-1.5)
== END | disposition home or self-care (01) ==
LOC: LAB 13:17
PROVIDERS: ATTEND Internal Medicine Cardiovascular Disease
DX: I50.9 Heart failure, unspecified (principal)
CPT/HCPCS: 36415; 82565; 84520

== ENCOUNTER → 2020-10-04 | Outpatient (CLI) | payer MEDICARE ==
[~2020-10-04] MED LIST changes: +IOHEXOL-350 50ML VIAL IV ONE
== END | disposition home or self-care (01) ==
LOC: RAH 09:13
PROVIDERS: ATTEND Internal Medicine Cardiovascular Disease
DX: K44.9 Diaphragmatic hernia without obstruction or gangrene (principal); K21.9 Gastro-esophageal reflux disease without esophagitis; K57.30 Diverticulosis of large intestine without perforation or abscess without bleeding; I50.9 Heart failure, unspecified
CPT/HCPCS: 74178; Q9967

== ENCOUNTER 2020-11-22 06:35 | Day surgery (SDC) | payer MEDICARE ==
[2020-11-18 14:24] LABS: BASOPHILS % (AUTO) 0.4 % (0.0-5.0); EOSINOPHILS % (AUTO) 1.6 % (0.0-8.0); HEMATOCRIT 38.6 % (42-54); LYMPHOCYTES % (AUTO) 34.2 % (21.0-51.0); MEAN CORPUSCULAR HEMOGLOBIN 31.8 pg (27.0-33.0); MEAN CORPUSCULAR HGB CONC 32.9 g/dL (32.0-36.0); MEAN CORPUSCULAR VOLUME 96.7 fL (79-99); MONOCYTES % (AUTO) 8.5 % (3.0-13.0); NEUTROPHILS % (AUTO) 54.9 % (40.0-77.0); PLATELET COUNT (AUTO) 144 K/uL (130-400); RED BLOOD CELL COUNT(AUTO) 3.99 MIL/uL (4.50-6.20); RED CELL DISTRIBUTION WIDTH 13.6 % (11.0-15.5); WHITE BLOOD COUNT (AUTO) 5.6 K/uL (4.8-10.8)
[2020-11-18 14:25] LABS: APPEARANCE,URINE Clear (CLEAR); BILIRUBIN,URINE Negative (NEGATIVE); COLOR,URINE Yellow (YELLOW); GLUCOSE, URINE (UA) Negative (NEGATIVE); KETONES,URINE Negative (NEGATIVE); LEUKOCYTE ESTERASE ,URINE Negative (NEGATIVE); NITRATE,URINE Negative (NEGATIVE); OCCULT BLOOD,URINE Small (NEGATIVE); PH,URINE 5.5 (5.0-8.0); PROTEIN,URINE Negative (NEGATIVE)
[2020-11-18 14:34] LABS: CREATININE 0.8 mg/dL (0.5-1.5)
[2020-11-18 14:37] LABS: INR 1.37 (0.85-1.15); PROTHROMBIN TIME 14.5 SEC (9.6-11.6)
[2020-11-18 14:39] LABS: PARTIAL THROMBOPLASTIN TIME 31.5 SEC (26.3-35.5)
[2020-11-18 14:43] LABS: BACTERIA,URINE Rare /HPF (None Seen); SQUAMOUS EPITHELIAL CELL,UR Rare /HPF (0-2); WBC,URINE 0-1 /HPF (0-1)
[2020-11-18 14:44] LABS: MUCUS,URINE None Seen LPF (None Seen)
[2020-11-22] VITALS (10 sets, daily range): BP systolic 120–133; BP diastolic 59–77
[~2020-11-22] VITALS: Ht 179.1 cm; Wt 75.7 kg
[~2020-11-22 06:35] MED LIST changes: -AMLO2.5T4 PO; -ASPI-1443 PO; +DEXL60CA3 PO; -FEXO1TAB8 PO; -FURO20TA4 PO; -IOHEXOL-350 50ML VIAL IV ONE; -LOSA100T58 PO; +RIVA20TA PO; +SACU1TAB PO
[2020-11-22] MEDS ORDERED: 0.9%NACL 1000ML 1,000 ML IV ONE (06:55)
[2020-11-22] MEDS ORDERED: NITROGLYCERIN 2 MG VIAL IV ONE (08:28)
[2020-11-22] MEDS ORDERED: LIDOCAINE HCL 400MG/20ML VIAL ONE (08:28)
[2020-11-22] MEDS ORDERED: IOHEXOL 350 MG/ML 100ML INFUS..BTL IV ONE (08:28)
[2020-11-22] MEDS ORDERED: IOHEXOL-350 50ML VIAL IV ONE (08:28)
[2020-11-22] MEDS ORDERED: IOHEXOL-350 75 ML VIAL IV ONE (08:37)
[2020-11-22] MEDS ORDERED: FENTANYL CITRATE PF 50 MCG/1 ML 2ML VIAL ONE (09:10)
[2020-11-22] MEDS ORDERED: MIDAZOLAM HCL 1 MG/ML 2ML VIAL ONE (09:10)
[2020-11-22] MEDS ORDERED: 0.9%NACL 10ML VIAL IVP SCH (10:00)
[2020-11-22] MEDS ORDERED: NITROGLYCERIN 0.4 MG SL TAB SL PRN (10:00)
[2020-11-22] MEDS ORDERED: GLUCAGON 1MG KIT 1 MG ML IM PRN (10:00)
[2020-11-22] MEDS ORDERED: DEXTROSE 50%-WATER 50 ML DISP.SYRIN IV PRN (10:00)
[2020-11-22] MEDS ORDERED: HYDRALAZINE 20MG/ML VIAL IV PRN (10:00)
== END 2020-11-22 14:30 | disposition home or self-care (01) ==
LOC: DAH 06:35
PROVIDERS: ATTEND Internal Medicine Cardiovascular Disease
DX: I25.118 Atherosclerotic heart disease of native coronary artery with other forms of angina pectoris (principal); I11.0 Hypertensive heart disease with heart failure; I50.43 Acute on chronic combined systolic (congestive) and diastolic (congestive) heart failure; I48.0 Paroxysmal atrial fibrillation; I65.23 Occlusion and stenosis of bilateral carotid arteries; D64.9 Anemia, unspecified; Z95.1 Presence of aortocoronary bypass graft; E78.5 Hyperlipidemia, unspecified; Z79.02 Long term (current) use of antithrombotics/antiplatelets; Z95.5 Presence of coronary angioplasty implant and graft; Z79.01 Long term (current) use of anticoagulants; Z68.23 Body mass index [BMI] 23.0-23.9, adult; Z98.890 Other specified postprocedural states; Z79.82 Long term (current) use of aspirin; Z79.899 Other long term (current) drug therapy
CPT/HCPCS: 36415; 71045; 80048; 81001; 85025; 85610; 85730; 93005; 93461; A4215; A4216; A4221; A4222; A4223 ×3; A4606; A4663; C1760; C1769; C1894 ×3; J1644; J2250; J3010; J3490 ×2; J7030; Q9965; Q9967 ×2; 99156; 99157

== ENCOUNTER 2021-01-20 06:38 | Observation (INO) | payer MEDICARE ==
[2021-01-18 11:01] LABS: CREATININE 0.8 mg/dL (0.5-1.5); POTASSIUM 4.2 mmol/L (3.5-5.1)
[2021-01-18 11:21] LABS: INR 1.2 (0.85-1.15); PROTHROMBIN TIME 12.9 SEC (9.6-11.6)
[2021-01-18 11:23] LABS: PARTIAL THROMBOPLASTIN TIME 25.8 SEC (26.3-35.5)
[2021-01-19 10:43] LABS: BASOPHILS % (AUTO) 0.3 % (0.0-5.0); HEMATOCRIT 44.8 % (42-54); LYMPHOCYTES % (AUTO) 32.6 % (21.0-51.0); MEAN CORPUSCULAR HEMOGLOBIN 31.7 pg (27.0-33.0); MEAN CORPUSCULAR HGB CONC 32.4 g/dL (32.0-36.0); MEAN CORPUSCULAR VOLUME 97.8 fL (79-99); MONOCYTES % (AUTO) 6.5 % (3.0-13.0); NEUTROPHILS % (AUTO) 58.3 % (40.0-77.0); PLATELET COUNT (AUTO) 116 K/uL (130-400); RED BLOOD CELL COUNT(AUTO) 4.58 MIL/uL (4.50-6.20); WHITE BLOOD COUNT (AUTO) 6.6 K/uL (4.8-10.8)
[2021-01-19 11:19] LABS: INR 1.24 (0.85-1.15); PROTHROMBIN TIME 13.3 SEC (9.6-11.6)
[2021-01-19 11:21] LABS: PARTIAL THROMBOPLASTIN TIME 28.5 SEC (26.3-35.5)
[2021-01-19 11:25] VITALS: BP 123/64
[~2021-01-20] VITALS: Ht 177.8 cm; Wt 75.0 kg
[2021-01-20] VITALS (11 sets, daily range): BP systolic 87–106; BP diastolic 45–61
[~2021-01-20 06:38] MED LIST changes: +CEFAZOLIN SODIUM 1 GM VIAL IVP SCH; +FEXO180T94 PO; +FURO20TA4 PO; +METO-408 PO; -METO25TA3 PO; +POTA-10 PO; -POTA-9 PO
[2021-01-20] MEDS ORDERED: 0.9%NACL 1000ML 1,000 ML IV ONE (08:01)
[2021-01-20] MEDS ORDERED: BUPIVACAINE/PF 0.25% 30ML VIAL IJ ONE (11:35)
[2021-01-20] MEDS ORDERED: MIDAZOLAM HCL 1 MG/ML 2ML VIAL ONE ×4 (11:35→12:47)
[2021-01-20] MEDS ORDERED: MEPERIDINE-PF 25 MG/ML SYG ONE ×4 (11:35→12:47)
[2021-01-20] MEDS ORDERED: IODIXANOL 320 MG/ML 100 ML VIAL ONE (11:42)
[2021-01-20] MEDS ORDERED: CETIRIZINE HCL 5 MG TABLET PO PRN (14:00)
[2021-01-20] MEDS ORDERED: ACETAMINOPHEN WITH CODEINE 1 TAB TAB PO PRN (14:00)
[2021-01-20] MEDS: BRIMONIDINE TARTRATE 0.2% 5 ML BOTTLE OP SCH (20:28)
[2021-01-20] MEDS: DORZOLAMIDE HCL 2% 10ML DROPS OP SCH (20:28)
[2021-01-20] MEDS: SACUBITRIL/VALSARTAN 1 EACH TABLET PO SCH (20:31)
[2021-01-20] MEDS ORDERED: LATANOPROST 2.5 ML DROPS OU SCH (21:00)
[2021-01-21 03:52] VITALS: BP 104/55
[2021-01-21 04:27] LABS: MEAN CORPUSCULAR HEMOGLOBIN 31.6 pg (27.0-33.0); MEAN CORPUSCULAR HGB CONC 33.4 g/dL (32.0-36.0); MEAN CORPUSCULAR VOLUME 94.5 fL (79-99); RED BLOOD CELL COUNT(AUTO) 4.02 MIL/uL (4.50-6.20); RED CELL DISTRIBUTION WIDTH 12.8 % (11.0-15.5); WHITE BLOOD COUNT (AUTO) 8.5 K/uL (4.8-10.8)
[2021-01-21 04:36] LABS: CREATININE 0.9 mg/dL (0.5-1.5); POTASSIUM 3.7 mmol/L (3.5-5.1)
[2021-01-21 07:00] VITALS: BP 121/69
[2021-01-21] MEDS: BRIMONIDINE TARTRATE 0.2% 5 ML BOTTLE OP SCH (08:19)
[2021-01-21] MEDS: DORZOLAMIDE HCL 2% 10ML DROPS OP SCH (08:20)
[2021-01-21] MEDS: SACUBITRIL/VALSARTAN 1 EACH TABLET PO SCH (08:20)
[2021-01-21] MEDS ORDERED: CLOPIDOGREL 75MG TAB PO SCH (09:00)
[2021-01-21] MEDS ORDERED: POTASSIUM CHLORIDE 10MEQ SR TAB PO SCH (09:00)
[2021-01-21] MEDS ORDERED: **HM** DEXILANT 60MG PO SCH (09:00)
[2021-01-21] MEDS ORDERED: FINASTERIDE 5 MG TABLET PO SCH (09:00)
[2021-01-21] MEDS ORDERED: ATORVASTATIN 40 MG TABLET PO SCH (09:00)
[2021-01-21] MEDS ORDERED: FUROSEMIDE 20 MG TABLET PO SCH (09:00)
[2021-01-21] MEDS ORDERED: METOPROLOL SUCCINATE 50 MG TAB.SR.24H PO SCH (09:00)
[2021-01-21 11:00] VITALS: BP 98/55
== END 2021-01-21 14:20 | disposition home or self-care (01) ==
LOC: DAH 06:38 → DAHIP 06:39 → 2DH 14:25
PROVIDERS: ADMIT Internal Medicine; ATTEND Internal Medicine
DX: I42.0 Dilated cardiomyopathy (principal); I49.8 Other specified cardiac arrhythmias; I25.10 Atherosclerotic heart disease of native coronary artery without angina pectoris; I11.0 Hypertensive heart disease with heart failure; I50.33 Acute on chronic diastolic (congestive) heart failure; E78.5 Hyperlipidemia, unspecified; N40.0 Benign prostatic hyperplasia without lower urinary tract symptoms; Z45.02 Encounter for adjustment and management of automatic implantable cardiac defibrillator; R42 Dizziness and giddiness; Z95.1 Presence of aortocoronary bypass graft; Z95.5 Presence of coronary angioplasty implant and graft; Z95.810 Presence of automatic (implantable) cardiac defibrillator
CPT/HCPCS: 33225; 33249; 36415 ×3; 71045; 80048 ×2; 85025; 85027; 85610 ×2; 85730 ×2; 93005; A4215; A4216; A4221; A4222; A4223 ×3; A4606; A4663; C1769; C1882; C1895; C1896; C1900; J0690; J2175 ×4; J2250 ×4; J3490; J7030; Q9967; 99156; 99157; G0378

== ENCOUNTER → 2021-03-22 | Outpatient (CLI) | payer MEDICARE ==
[~2021-03-22] MED LIST changes: -CEFAZOLIN SODIUM 1 GM VIAL IVP SCH
== END | disposition home or self-care (01) ==
LOC: SHCH 11:31
PROVIDERS: ATTEND Internal Medicine Cardiovascular Disease
DX: I87.2 Venous insufficiency (chronic) (peripheral) (principal)
CPT/HCPCS: 93970

== ENCOUNTER → 2022-06-05 | Outpatient (CLI) | payer MEDICARE ==
[~2022-06-05] MED LIST changes: -POTA-10 PO; +POTA-200 PO
== END | disposition home or self-care (01) ==
LOC: SHCH 08:38
PROVIDERS: ATTEND Internal Medicine Cardiovascular Disease
DX: I65.23 Occlusion and stenosis of bilateral carotid arteries (principal)
CPT/HCPCS: 93880

== ENCOUNTER → 2023-04-08 | Outpatient (CLI) | payer MEDICARE ==
[2023-04-08 16:20] LABS: BASOPHILS # (AUTO) 0.02 K/uL (0.00-0.20); BASOPHILS % (AUTO) 0.3 % (0.0-5.0); EOSINOPHILS # (AUTO) 0.11 K/uL (0.00-0.70); EOSINOPHILS % (AUTO) 1.6 % (0.0-8.0); HEMATOCRIT 42.3 % (42-54); IMMATURE GRANULOCYTE ABSOLUTE 0.03 K/uL (0-1); LYMPHOCYTES # (AUTO) 1.8 K/uL (1.0-4.8); LYMPHOCYTES % (AUTO) 27.1 % (21.0-51.0); MEAN CORPUSCULAR HEMOGLOBIN 32.2 pg (27.0-33.0); MEAN CORPUSCULAR HGB CONC 32.6 g/dL (32.0-36.0); MEAN CORPUSCULAR VOLUME 98.6 fL (79-99); MONOCYTES # (AUTO) 0.5 K/uL (0.1-1.0); MONOCYTES % (AUTO) 7.9 % (3.0-13.0); NEUTROPHILS # (AUTO) 4.2 K/uL (1.8-7.7); NEUTROPHILS % (AUTO) 62.7 % (40.0-77.0); PLATELET COUNT (AUTO) 205 K/uL (130-400); RED BLOOD CELL COUNT(AUTO) 4.29 MIL/uL (4.50-6.20); RED CELL DISTRIBUTION WIDTH 14.1 % (11.0-15.5); WHITE BLOOD COUNT (AUTO) 6.8 K/uL (4.8-10.8)
== END | disposition home or self-care (01) ==
LOC: LAB 12:48
PROVIDERS: ATTEND Internal Medicine Cardiovascular Disease
DX: I50.9 Heart failure, unspecified (principal); R60.9 Edema, unspecified
CPT/HCPCS: 36415; 83880; 85025

== ENCOUNTER → 2023-04-20 | Outpatient (CLI) | payer MEDICARE | END | disposition home or self-care (01) | LOC: SHCH 13:23 | PROVIDERS: ATTEND Internal Medicine Cardiovascular Disease | DX: I08.8 Other rheumatic multiple valve diseases (principal); R60.9 Edema, unspecified; I42.9 Cardiomyopathy, unspecified | CPT/HCPCS: 93306 ==

== ENCOUNTER → 2023-05-04 | Outpatient (CLI) | payer MEDICARE | LOC: SHCH 13:51 | PROVIDERS: ATTEND Internal Medicine Cardiovascular Disease | DX: I87.1 Compression of vein (principal); I87.2 Venous insufficiency (chronic) (peripheral) | CPT/HCPCS: 93970 ==

== ENCOUNTER 2023-06-13 09:15 | Emergency (ER) | payer MEDICARE ==
[~2023-06-13] VITALS: Ht 175.3 cm; Wt 78.5 kg
[2023-06-13 10:33] LABS: BASOPHILS # (AUTO) 0.03 K/uL (0.00-0.20); BASOPHILS % (AUTO) 0.4 % (0.0-5.0); EOSINOPHILS # (AUTO) 0.12 K/uL (0.00-0.70); EOSINOPHILS % (AUTO) 1.8 % (0.0-8.0); HEMATOCRIT 43.8 % (42-54); IMMATURE GRANULOCYTE ABSOLUTE 0.02 K/uL (0-1); LYMPHOCYTES # (AUTO) 1.6 K/uL (1.0-4.8); MEAN CORPUSCULAR HEMOGLOBIN 32.2 pg (27.0-33.0); MEAN CORPUSCULAR HGB CONC 33.8 g/dL (32.0-36.0); MEAN CORPUSCULAR VOLUME 95.2 fL (79-99); MONOCYTES # (AUTO) 0.5 K/uL (0.1-1.0); NEUTROPHILS # (AUTO) 4.4 K/uL (1.8-7.7); NEUTROPHILS % (AUTO) 65.5 % (40.0-77.0); PLATELET COUNT (AUTO) 161 K/uL (130-400); WHITE BLOOD COUNT (AUTO) 6.7 K/uL (4.8-10.8)
[2023-06-13 10:46] LABS: INR 1.57 (0.85-1.15); PROTHROMBIN TIME 17.9 SEC (9.6-11.6)
[2023-06-13 10:47] LABS: PARTIAL THROMBOPLASTIN TIME 38.2 SEC (26.3-35.5)
[2023-06-13 10:55] LABS: CREATININE 0.9 mg/dL (0.5-1.3); POTASSIUM 3.6 mmol/L (3.5-5.1)
[2023-06-13 11:00] VITALS: BP 132/57; PULSE 74; RESP 18; O2SAT 99
[2023-06-13 11:02] LABS: ALBUMIN 3.8 g/dL (3.5-5.0); BILIRUBIN,TOTAL 1.5 mg/dL (0.2-1.0); TOTAL PROTEIN, SERUM 7.1 g/dL (6.0-8.3)
== END 2023-06-13 11:04 | disposition home or self-care (01) ==
LOC: EDH 09:15
DX: R60.0 Localized edema (principal); E78.00 Pure hypercholesterolemia, unspecified; I11.0 Hypertensive heart disease with heart failure; I50.9 Heart failure, unspecified; Z79.02 Long term (current) use of antithrombotics/antiplatelets; Z79.899 Other long term (current) drug therapy; Z88.1 Allergy status to other antibiotic agents; Z95.1 Presence of aortocoronary bypass graft; Z95.5 Presence of coronary angioplasty implant and graft; Z95.810 Presence of automatic (implantable) cardiac defibrillator
CPT/HCPCS: 36415; 80053; 85025; 85610; 85730; 93971

== ENCOUNTER → 2023-08-28 | Outpatient (CLI) | payer MEDICARE ==
[~2023-08-28] MED LIST changes: +APIX2.5T PO; -BRIM10DR16 OP; +CEPH500B PO; +CLOP-31 PO; -CLOP75TA32 PO; -DEXL60CA3 PO; +DRON400T7 PO; -FEXO180T94 PO; -FLUT16H NS; -POTA-200 PO; +POTA10CA95 PO; -RIVA20TA PO; +SULF1TAB42 PO; +TIMO1DRO9 OP
[2023-08-28 12:07] LABS: BASOPHILS # (AUTO) 0.05 K/uL (0.00-0.20); BASOPHILS % (AUTO) 0.3 % (0.0-5.0); EOSINOPHILS # (AUTO) 0.08 K/uL (0.00-0.70); EOSINOPHILS % (AUTO) 0.5 % (0.0-8.0); HEMATOCRIT 40.6 % (42-54); IMMATURE GRANULOCYTE ABSOLUTE 0.07 K/uL (0-1); LYMPHOCYTES # (AUTO) 1.5 K/uL (1.0-4.8); LYMPHOCYTES % (AUTO) 9.8 % (21.0-51.0); MEAN CORPUSCULAR HEMOGLOBIN 31.8 pg (27.0-33.0); MEAN CORPUSCULAR HGB CONC 32.8 g/dL (32.0-36.0); MEAN CORPUSCULAR VOLUME 97.1 fL (79-99); MONOCYTES # (AUTO) 1.1 K/uL (0.1-1.0); MONOCYTES % (AUTO) 7.1 % (3.0-13.0); NEUTROPHILS # (AUTO) 12.2 K/uL (1.8-7.7); NEUTROPHILS % (AUTO) 81.8 % (40.0-77.0); PLATELET COUNT (AUTO) 355 K/uL (130-400); RED BLOOD CELL COUNT(AUTO) 4.18 MIL/uL (4.50-6.20); RED CELL DISTRIBUTION WIDTH 14.8 % (11.0-15.5); WHITE BLOOD COUNT (AUTO) 14.9 K/uL (4.8-10.8)
[2023-08-28 12:21] LABS: CREATININE 0.8 mg/dL (0.5-1.3); POTASSIUM 4.2 mmol/L (3.5-5.1)
[2023-08-28 12:25] LABS: APPEARANCE,URINE CLOUDY (CLEAR); BILIRUBIN,URINE NEGATIVE (NEGATIVE); COLOR,URINE COLORLESS (YELLOW); GLUCOSE, URINE (UA) >=1000 mg/dL (NEGATIVE); KETONES,URINE NEGATIVE (NEGATIVE); LEUKOCYTE ESTERASE ,URINE 500 Leu/uL (NEGATIVE); NITRATE,URINE NEGATIVE (NEGATIVE); OCCULT BLOOD,URINE LARGE (NEGATIVE); PROTEIN,URINE 10 mg/dL (NEGATIVE); UROBILINOGEN,URINE 0.2 mg/dL (0.2-1.0)
[2023-08-28 12:32] LABS: ADD UA MICROSCOPIC YES
[2023-08-28 12:45] LABS: BACTERIA,URINE FEW /HPF (None Seen); MUCUS,URINE RARE LPF (None Seen); RBC,URINE 51-100 /HPF (0-1); SQUAMOUS EPITHELIAL CELL,UR RARE /HPF (0-2); WBC,URINE TNTC /HPF (0-1); YEAST,URINE BUDDING FEW /HPF (None Seen)
== END | disposition home or self-care (01) ==
LOC: LAB 10:41
PROVIDERS: ATTEND Internal Medicine Cardiovascular Disease
DX: R31.9 Hematuria, unspecified (principal); I25.5 Ischemic cardiomyopathy; I47.10 Supraventricular tachycardia, unspecified
CPT/HCPCS: 36415; 80048; 81001; 85025; 87086; 87186

== ENCOUNTER 2024-04-02 07:03 | Day surgery (SDC) | payer MEDICARE ==
[2024-03-31 11:36] LABS: BASOPHILS # (AUTO) 0.02 K/uL (0.00-0.20); BASOPHILS % (AUTO) 0.4 % (0.0-5.0); EOSINOPHILS # (AUTO) 0.11 K/uL (0.00-0.70); HEMATOCRIT 42.7 % (42-54); IMMATURE GRANULOCYTE ABSOLUTE 0.02 K/uL (0-1); LYMPHOCYTES # (AUTO) 1.3 K/uL (1.0-4.8); LYMPHOCYTES % (AUTO) 23.4 % (21.0-51.0); MEAN CORPUSCULAR HEMOGLOBIN 30.6 pg (27.0-33.0); MEAN CORPUSCULAR HGB CONC 32.3 g/dL (32.0-36.0); MEAN CORPUSCULAR VOLUME 94.7 fL (79-99); MONOCYTES # (AUTO) 0.5 K/uL (0.1-1.0); MONOCYTES % (AUTO) 9.1 % (3.0-13.0); NEUTROPHILS # (AUTO) 3.7 K/uL (1.8-7.7); NEUTROPHILS % (AUTO) 64.7 % (40.0-77.0); PLATELET COUNT (AUTO) 143 K/uL (130-400); RED BLOOD CELL COUNT(AUTO) 4.51 MIL/uL (4.50-6.20); RED CELL DISTRIBUTION WIDTH 15.4 % (11.0-15.5); WHITE BLOOD COUNT (AUTO) 5.6 K/uL (4.8-10.8)
[2024-03-31 11:44] VITALS: BP 98/67; PULSE 70; RESP 18; TEMP 97.6
[~2024-04-02] VITALS: Ht 172.7 cm; Wt 74.2 kg
[~2024-04-02 07:03] MED LIST changes: -APIX2.5T PO; +APIX5TAB PO; -CEPH500B PO; +EMPA10TA PO; -SULF1TAB42 PO
[2024-04-02 07:20] VITALS: BP 102/54; PULSE 73; RESP 18; TEMP 97.5
[2024-04-02] MEDS ORDERED: 0.9%NACL 1000ML 1,000 ML IV SCH (08:00)
[2024-04-02] MEDS ORDERED: proPOFol 10 MG/ML 20ML VIAL IV ONE (08:18)
[2024-04-02] MEDS ORDERED: LIDOCAINE PF 100MG/5ML (2%) SYRINGE 5ML ONE (08:18)
[2024-04-02 10:10] VITALS: BP 102/55; PULSE 70; RESP 12
[2024-04-02 10:20] VITALS: BP 101/50; PULSE 70; RESP 14
[2024-04-02 10:30] VITALS: BP 98/51; PULSE 70; RESP 14
[2024-04-02 10:40] VITALS: BP 102/50; PULSE 70; RESP 12
[2024-04-02 10:50] VITALS: BP 107/54; PULSE 70; RESP 13
--- NOTE | 2024-04-02 11:58 | EKG ---
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
--- NOTE | 2024-04-13 10:51 | PRN ---
Procedure Note INDICATION FOR PROCEDURE: Persistent atrial fibrillation PROCEDURE: Cardioversion DATE OF PROCEDURE: 04/02/24 UNCRATER: Jeremy Jenkins MD PROCEDURE NOTE: The patient was brought to the day patient area in a fasting state. Anesthesia was provided by the anesthesia service. The pacemaker was interrogated and reprogrammed. A synchronized shock of 150 joules was delivered resulting in sinus rhythm/AV pacing. The patient tolerated the procedure well. There were no complications. The pacemaker was again reprogrammed. COMPLICATIONS: None IMPRESSION: Persistent atrial fibrillation status post successful cardioversion PLAN: 1. The patient will be observed and discharged home later today. 2. Follow-up with me in the office in approximately two weeks. JEREMY JENKINS MD Apr 13, 2024 10:51
== END 2024-04-02 11:05 | disposition home or self-care (01) ==
LOC: DAH 07:03
PROVIDERS: ATTEND Internal Medicine Cardiovascular Disease
DX: I47.19 Other supraventricular tachycardia (principal); I48.19 Other persistent atrial fibrillation; I48.0 Paroxysmal atrial fibrillation; I25.5 Ischemic cardiomyopathy; I45.10 Unspecified right bundle-branch block; I12.0 Hypertensive chronic kidney disease with stage 5 chronic kidney disease or end stage renal disease; N18.6 End stage renal disease; I25.10 Atherosclerotic heart disease of native coronary artery without angina pectoris; E78.5 Hyperlipidemia, unspecified; Z95.1 Presence of aortocoronary bypass graft; Z86.16 Personal history of COVID-19; Z95.0 Presence of cardiac pacemaker; Z88.1 Allergy status to other antibiotic agents; Z79.01 Long term (current) use of anticoagulants; Z79.899 Other long term (current) drug therapy
CPT/HCPCS: 80048; 85025; 36415; 92960; 93005; J2003; J2704; A4620; A4215; A4222; A4221; A4663; A4216; A4606; A4223 ×3; J3490